=== PATIENT | female | born 1970 | race Caucasian/White ===

== ENCOUNTER 2017-06-10 00:07 | Observation (INO) | payer OTHER ==
[2017-06-10] VITALS (8 sets, daily range): BP systolic 102–137; BP diastolic 57–82; PULSE 77–81; RESP 16–20; TEMP 98–98.5; O2SAT 97–99
[~2017-06-10] VITALS: Ht 162.6 cm; Wt 95.0 kg
[~2017-06-10 00:07] MED LIST: CYCL-36 PO; NAPR40TA PO
[2017-06-10] MEDS ORDERED: MELO15TA20 PO (00:16)
[2017-06-10] MEDS ORDERED: SODIUM CHLORIDE 0.9% FLUSH 10 ML FLUSH IVF PRN (00:45)
[2017-06-10] MEDS ORDERED: NITROGLYCERIN 2% OINT 1 GM PACKET TOP ONE (00:45)
--- NOTE | 2017-06-10 00:46 | PD ---
HPI Chief Complaint: Chest Pain Time Seen by Provider: 00:35 Travel History International Travel<30 days: No Contact w/Intl Traveler<30days: No Traveled to known affect area: No History of Present Illness HPI The patient is of 46 year old female who presents to the [facility] emergency department with a history of chest pain that has been coming in going over the last 4 weeks. Tonight it was more severe and persistent. It was associated with nausea and dizziness. The pain as located on the left side of her chest and is a squeezing sensation. She recently had a physical with her PCP and had a chest xray pa and lateral that showed calcifications in the aorta for which she was referred to a Run Lead. She denies any other imaging being done at that time. She smokes 4-5 cigarettes per day. She has a history of gestational diabetes. She has had n/v x12 since the onset of the symptom. She has had diarrhea additionally that began 2-3 days ago. She has had yellow stools. The patient denies any history of fever, cough, congestion, neck pain, shortness of breath, urinary symptoms, or neurologic symptoms. Over the last week she has had some nasal congestion. [facility] Past Medical History Narrative Medical The patient's past medical history significant for gestational dm, lupus, arthritis. Arthritis: Yes Autoimmune Disease: Yes (LUPUS) Diabetes: Yes (GESTATIONAL DIABETES) Patient Takes Glucophage: No Diminished Hearing: No Immune Disorder: Yes (LUPUS ) Respiratory: Yes (hx pleurisy) Immunizations Current: Yes Tetanus Vaccination: Unknown Influenza Vaccination: No ?: Not Menopausal: No : 4 Para: 3 Miscarriage: 1 : 0 Tubal Ligation: Yes Past Surgical History Narrative Surgical The patient's past surgical history significant for bilateral tubal ligation. Gynecologic Surgery: Yes (TUBAL LIGATION ) Social History Alcohol Use: Yes (OCC) Tobacco Use: Yes (pack/week) Substance Use: Yes ([id number] x per week) Allergies-Medications (Allergen,Severity, Reaction): Coded Allergies: tramadol (Unverified Allergy, Severe, RASH,SOB, 06/10/17) Reported Meds & Prescriptions Reported Meds & Active Scripts Active Reported Meloxicam 15 Mg Tab 15 Mg PO DAILY Review of Systems Except as stated in HPI: all other systems reviewed are Neg General / Constitutional: No: Fever Eyes: No: Visual changes HENT: Positive: Congestion, No: Headaches, Rhinorrhea Cardiovascular: Positive: Chest Pain or Discomfort Respiratory: No: Shortness of Breath Gastrointestinal: Positive: Nausea, Vomiting, Diarrhea, No: Abdominal Pain Genitourinary: No: Dysuria Musculoskeletal: No: Pain Skin: No Rash Neurologic: No: Weakness Psychiatric: No: Depression Endocrine: No: Polydipsia Hematologic/Lymphatic: No: Easy Bruising Physical Exam Narrative General: The patient is a well-developed well-nourished female in no acute distress. Head and Neck exam: Head is normocephalic atraumatic. Eyes: EOMI, pupils are equal round and reactive to light. Nose: Midline septum with pink mucous membranes Mouth: Dentition unremarkable. Moist mucus membranes. Posterior oropharynx is not erythematous. No tonsillar hypertrophy. Uvula midline. Airway patent. Neck: No palpable lymphadenopathy. No nuchal rigidity. No thyromegaly. Cardiovascular: Regular rate and rhythm without murmurs, gallops, or rubs. Lungs: Clear to auscultation bilaterally. No wheezes, rhonchi, or rales. Abdomen: Soft, without tenderness to palpation in all 4 quadrants of the abdomen. No guarding, rebound, or rigidity. Normal bowel sounds are audible. No tenderness on palpation of McBurney's point. Negative Stacy sign. Extremities: No clubbing, cyanosis, or edema. 2+ pulses in all 4 extremities. No calf tenderness on palpation. Negative Homans sign. No palpable cords. Back: No spinous process tenderness to palpation. The patient is noted to have left- sided CVA tenderness on palpation. No right-sided CVA tenderness on palpation. Neurologic Exam: Grossly nonfocal. Skin Exam: No rash noted. Intact skin that is warm and dry. Data Data Last Documented VS Vital Signs Date Time Temp Pulse Resp B/P (MAP) Pulse Ox O2 Delivery O2 Flow Rate FiO2 06/10/17 03:02 80 16 125/70 (88) 99 Room Air 06/10/17 00:19 98.0 2.00 Orders Orders Electrocardiogram (06/10/17 00:36) B-Type Natriuretic Peptide (06/10/17 00:36) Ckmb (Isoenzyme) Profile (06/10/17 00:36) Complete Blood Count With Diff (06/10/17 00:36) Comprehensive Metabolic Panel (06/10/17 00:36) D-Dimer (06/10/17 00:36) Magnesium (Mg) (06/10/17 00:36) Prothrombin Time / Inr (Pt) (06/10/17 00:36) Act Partial Throm Time (Ptt) (06/10/17 00:36) Troponin I (06/10/17 00:36) Lipase (06/10/17 00:36) Chest, Single Ap (06/10/17 00:36) Ecg Monitoring (06/10/17 00:36) Bilateral Bp Monitoring (06/10/17 00:36) Iv Access Insert/Monitor (06/10/17 00:36) Oximetry (06/10/17 00:36) Oxygen Administration (06/10/17 00:36) Nitroglycerin 2% Oint (Nitroglycerin 2% (06/10/17 00:45) Sodium Chloride 0.9% Flush (Ns Flush) (06/10/17 00:45) Ed Urine Pregnancytest Poc (06/10/17 00:36) Ketorolac Inj (Toradol Inj) (06/10/17 01:30) Pyridostigmine Inj (Regonol Inj) (06/10/17 01:30) Sodium Chlorid 0.9% 500 Ml Inj (Ns 500 M (06/10/17 01:30) Potassium Chloride (Kcl) (06/10/17 01:45) Urinalysis - C+S If Indicated (06/10/17 01:36) Metoclopramide Inj (Reglan Inj) (06/10/17 01:45) Sodium Chlor 0.9% 1000 Ml Inj (Ns 1000 M (06/10/17 02:15) Admit Order (Ed Use Only) (06/10/17 03:13) Labs Laboratory Tests Test 06/10/17 00:40 06/10/17 02:20 White Blood Count 9.1 TH/MM3 Red Blood Count 4.00 MIL/MM3 Hemoglobin 12.7 GM/DL Hematocrit 37.6 % Mean Corpuscular Volume 94.0 FL Mean Corpuscular Hemoglobin 31.8 PG Mean Corpuscular Hemoglobin Concent 33.8 % Red Cell Distribution Width 13.1 % Platelet Count 220 TH/MM3 Mean Platelet Volume 8.7 FL Neutrophils (%) (Auto) 61.6 % Lymphocytes (%) (Auto) 30.4 % Monocytes (%) (Auto) 5.1 % Eosinophils (%) (Auto) 2.6 % Basophils (%) (Auto) 0.3 % Neutrophils # (Auto) 5.6 TH/MM3 Lymphocytes # (Auto) 2.8 TH/MM3 Monocytes # (Auto) 0.5 TH/MM3 Eosinophils # (Auto) 0.2 TH/MM3 Basophils # (Auto) 0.0 TH/MM3 CBC Comment DIFF FINAL Differential Comment Prothrombin Time 10.6 SEC Prothromb Time International Ratio 1.0 RATIO Activated Partial Thromboplast Time 26.1 SEC D-Dimer Quantitative (PE/DVT) 0.30 MG/L FEU Blood Urea Nitrogen 12 MG/DL Creatinine 0.61 MG/DL Random Glucose 84 MG/DL Total Protein 6.6 GM/DL Albumin 3.4 GM/DL Calcium Level 7.8 MG/DL Magnesium Level 1.8 MG/DL Alkaline Phosphatase 76 U/L Aspartate Amino Transf (AST/SGOT) 15 U/L Alanine Aminotransferase (ALT/SGPT) 31 U/L Total Bilirubin 0.4 MG/DL Sodium Level 141 MEQ/L Potassium Level 3.4 MEQ/L Chloride Level 109 MEQ/L Carbon Dioxide Level 26.1 MEQ/L Anion Gap 6 MEQ/L Estimat Glomerular Filtration Rate 107 ML/MIN Total Creatine Kinase 64 U/L Troponin I LESS THAN 0.02 NG/ML B-Type Natriuretic Peptide 35 PG/ML Lipase 107 U/L Urine Color YELLOW Urine Turbidity CLEAR Urine pH 6.0 Urine Specific S [place] 1.033 Urine Protein TRACE mg/dL Urine Glucose (UA) NEG mg/dL Urine Ketones TRACE mg/dL Urine Occult Blood NEG Urine Nitrite NEG Urine Bilirubin NEG Urine Urobilinogen LESS THAN 2.0 MG/DL Urine Leukocyte Esterase NEG Urine RBC 2 /hpf Urine WBC 1 /hpf Urine Squamous Epithelial Cells 1 /hpf Urine Mucus MANY /lpf Microscopic Urinalysis Comment CULT NOT INDICATED MDM Medical Decision Making Medical Screen Exam Complete: Yes Emergency Medical Condition: Yes Medical Record Reviewed: Yes Differential Diagnosis Acute coronary syndrome, versus gastritis, versus pancreatitis, versus acid reflux, versus pulmonary embolus Narrative Course During the course of the patients emergency department visit, the patients history, examination, and differential diagnosis were reviewed with the patient. The patient was placed on a private wealth advisor with oximetry and frequent blood pressure monitoring. The patient had IV access obtained and blood work sent for analysis. The patient had an ECG done on arrival. The patient's ECG reveals a sinus rhythm with a sinus arrhythmia, heart rate of 78, QRS duration is 90 ms, QTC 415 ms, no acute ST segment elevation or depression, T waves are inverted in V1. The patient was initially provided nitroglycerin 1 inch of paste to the chest wall, normal saline at 500 mL bolus 1, Toradol 15 mg IV. The patient continued to have nausea with given Reglan 5 mg IV. The patient has treated for mild hypokalemia with p.o. potassium. The patient has given an additional normal saline 1 L IV fluid bolus. The patients laboratory studies were reviewed and remarkable for A CBC that it is within normal limit, CMP as remarkable for potassium of 3.4, chloride 109, calcium 7.8, cardiac enzymes within normal limits, BNP 35, lipase 107, PT PTT within normal limits, d-dimer less than 0.5 decreasing likelihood of pulmonary embolism in this patient with no other significant risk factors. Urinalysis as unremarkable except for trace ketones. Radiology studies were reviewed and remarkable for a chest x-ray that shows no evidence of acute cardiopulmonary disease The patient will be admitted to the chest pain center for rule out serial cardiac enzyme protocol, followed by consideration of stress testing. Diagnosis Primary Impression: Chest pain, rule out acute myocardial infarction Admitting Information Admitting Physician Requests: Saray Antonio MD Jun 10, 2017 00:46
--- NOTE | 2017-06-10 00:57 | RADRPT ---
EXAM DATE/TIME: 06/10/2017 00:40 [facility] COMPARISON: CHEST SINGLE AP, August 17, 2015, 11:38. INDICATIONS : Chest pain. MEDICAL HISTORY : None. SURGICAL HISTORY : None. ENCOUNTER: Initial ACUITY: 1 day PAIN SCORE: 4/10 LOCATION: Left chest FINDINGS: A single view of the chest demonstrates the lungs to be symmetrically aerated without evidence of mas s, infiltrate or effusion. The cardiomediastinal contours are unremarkable. Osseous structures are intact. CONCLUSION: No acute disease. Elier Carpenter MD on June 10, 2017 at 0:54 Board Certified Radiologist. This report was verified electronically.
[2017-06-10 01:08] LABS: AUTOMATED NEUTROPHIL # 5.6 TH/MM3 (1.8-7.7); BASOPHIL % 0.3 % (0.0-2.0); EOSINOPHIL # 0.2 TH/MM3 (0-0.4); EOSINOPHIL % 2.6 % (0.0-4.0); HEMATOCRIT 37.6 % (35.0-46.0); HEMOGLOBIN 12.7 GM/DL (11.6-15.3); LYMPH % 30.4 % (9.0-44.0); LYMPHOCYTE # 2.8 TH/MM3 (1.0-4.8); MEAN CORPUSCULAR HEMOGLOBIN 31.8 PG (27.0-34.0); MEAN CORPUSCULAR HGB CONC 33.8 % (32.0-36.0); MEAN PLATELET VOLUME 8.7 FL (7.0-11.0); MONO % 5.1 % (0.0-8.0); MONOCYTE # 0.5 TH/MM3 (0-0.9); NEUT % 61.6 % (16.0-70.0); PLATELET COUNT 220 TH/MM3 (150-450); RED CELL DISTRIBUTION WIDTH 13.1 % (11.6-17.2); WHITE BLOOD COUNT 9.1 TH/MM3 (4.0-11.0)
[2017-06-10 01:16] LABS: D-DIMER 0.3 MG/L FEU (0.00-0.50); PROTHROMBIN TIME - PATIENT 10.6 SEC (9.8-11.6)
[2017-06-10 01:22] LABS: ALBUMIN 3.4 GM/DL (3.4-5.0); AST (GOT) 15 U/L (15-37); BICARBONATE 26.1 MEQ/L (21.0-32.0); BLOOD UREA NITROGEN 12 MG/DL (7-18); CALCIUM 7.8 MG/DL (8.5-10.1); CHLORIDE 109 MEQ/L (98-107); CREATININE 0.61 MG/DL (0.50-1.00); GLOMERULAR FILTRATION RATE 107 ML/MIN (>89); GLUCOSE,RANDOM 84 MG/DL (74-106); LIPASE 107 U/L (73-393); MAGNESIUM 1.8 MG/DL (1.5-2.5); SODIUM (NA) 141 MEQ/L (136-145)
[2017-06-10 01:27] LABS: ALKALINE PHOSPHATASE 76 U/L (45-117); ALT (GPT) 31 U/L (10-53); TOTAL BILIRUBIN ADULT 0.4 MG/DL (0.2-1.0); TOTAL PROTEIN 6.6 GM/DL (6.4-8.2); TROPONIN I LESS THAN 0.02 NG/ML (0.02-0.05)
[2017-06-10] MEDS ORDERED: PYRIDOSTIGMINE INJ 10 MG/2 ML AMP IM ONE (01:30)
[2017-06-10] MEDS ORDERED: SODIUM CHLORID 0.9% 500 ML INJ 500 ML IV ONE (01:30)
[2017-06-10] MEDS ORDERED: KETOROLAC TROMETHAMINE 30 MG/ML (IVP) VIAL IV PUSH ONE (01:30)
[2017-06-10] MEDS ORDERED: POTASSIUM CHLORIDE 20 MEQ CONTROLLED RELEASE TAB PO ONE (01:45)
[2017-06-10] MEDS ORDERED: METOCLOPRAMIDE HCL 10 MG/2 ML VIAL IV PUSH ONE (01:45)
[2017-06-10] MEDS ORDERED: SODIUM CHLOR 0.9% 1000 ML INJ 1,000 ML IV ONE (02:15)
[2017-06-10 02:47] LABS: BILIRUBIN, URINE NEG (NEG); BLOOD, URINE NEG (NEG); GLUCOSE,URINE NEG (NEG); KETONE, URINE TRACE mg/dL (NEG); MUCUS URINE MANY /lpf (OCC); NITRITE,URINE NEG (NEG); SQUAMOUS EPITHELIAL CELL URINE 1 /hpf (0-5); URINE COLOR YELLOW (YELLW/STRAW); URINE LEUKOCYTE ESTERASE NEG (NEG)
[2017-06-10] MEDS ORDERED: SODIUM CHLOR 0.9% 1000 ML INJ 1,000 ML IV SCH (03:49)
[2017-06-10] MEDS ORDERED: ONDANSETRON HCL 4 MG/2 ML VIAL IV PUSH PRN (04:00)
[2017-06-10] MEDS ORDERED: SODIUM CHLORIDE 0.9% FLUSH 10 ML FLUSH IV FLUSH PRN (04:00)
[2017-06-10] MEDS ORDERED: ACETAMINOPHEN 500 MG CPLT PO PRN (04:00)
[2017-06-10 04:26] LABS: TROPONIN I 0.02 NG/ML (0.02-0.05)
[2017-06-10 07:26] LABS: TROPONIN I LESS THAN 0.02 NG/ML (0.02-0.05)
[2017-06-10] MEDS ORDERED: ACETAMINOPHEN 325 MG TAB PO ONE (07:45)
[2017-06-10] MEDS ORDERED: FAMOTIDINE 20 MG TAB PO SCH (09:00)
[2017-06-10] MEDS ORDERED: SODIUM CHLORIDE 0.9% FLUSH 10 ML FLUSH IV FLUSH SCH (09:00)
--- NOTE | 2017-06-10 09:07 | HHI.HP ---
[facility] Primary Care Physician Seamus Gerber DO Chief Complaint Chest pain History of Present Illness This is a 46-year-old female that presents to ED to be evaluated for chest discomfort. Patient states that she has had a constant discomfort for one month that began as a pressure in left lower chest and radiates upwards and turned into a squeezing sensation. This continues to cycle constantly for the past month. She is found nothing to worsen or improve it. She's had no shortness of breath with it. No diaphoresis. Was not feeling nauseous with it however she states over the last 2 days she has had nausea with a couple episodes of emesis which was nonbloody. She is also had multiple bouts of watery bowel movements. States she's had diarrhea for 2 days. She states she' s. To watery bowel movements since being in the ED. Denies fevers. Denies any known sick contacts. Denies recent travel. Denies history of CAD. She had a stress test at this facility July 2015 at which time she had a nonischemic worse protocol ETT. Her primary care physician is Dr. Rosales. She states she saw him for this discomfort and states she was referred to a housekeeping lead that she has an appointment for next week. Review of Systems General: Patient denies fevers, chills recent, and recent travel HEENT: Patient denies headache, sore throat, difficulty swallowing. Cardiovascular: Has the chest discomfort as mentioned above. Denies sensation of heart beating rapidly or irregularly. No syncope. Denies diaphoresis. Respiratory: Denies shortness of breath or inspirational chest discomfort. Denies coughing wheezing or hemoptysis. GI: Patient began feeling nauseous with a couple episodes of nonbloody emesis as well as diarrhea, this began 2 days ago. Denies abdominal pain. Patient denies bloody stools. Musculoskeletal: Chronic arthralgias, stating she has lupus. Patient denies joint edema. Denies calf pain or edema. Neurovascular: Patient denies numbness, tingling, weakness in extremities. Denies headache. Endocrine: Denies polyuria and polydipsia. Hematologic: Denies easy bruising. Skin: Denies rash or itching. Past Family Social History Allergies: Coded Allergies: tramadol (Unverified Allergy, Severe, RASH,SOB, 06/10/17) Past Medical History This and tobacco abuse. Denies known CAD, hypertension, hyperlipidemia, or diabetes. Past Surgical History Tubal ligation. Reported Medications Reported Meds & Active Scripts Active Reported Meloxicam 15 Mg Tab 15 Mg PO DAILY Active Ordered Medications Current Medications Medications (Trade) Dose Ordered Sig/Charline Route Start Time Stop Time Status Last Admin (NS Flush) 2 ml UNSCH PRN IVF 06/10/17 00:45 Sodium Chloride 1,000 ml @ 100 mls/hr Q10H IV 06/10/17 03:49 06/10/17 04:04 (NS Flush) 2 ml UNSCH PRN IV FLUSH 06/10/17 04:00 (NS Flush) 2 ml BID IV FLUSH 06/10/17 09:00 (Tylenol) 500 mg Q4H PRN PO 06/10/17 04:00 06/10/17 05:34 (Zofran Inj) 4 mg Q6H PRN IV PUSH 06/10/17 04:00 06/10/17 05:34 (Pepcid) 20 mg BID PO 06/10/17 09:00 Family History States her father had a CABG at age 55. Social History Smokes on average one half pack of cigarettes per week and has done so for 8 years. She smokes marijuana at least 4 times a week. Has occasional alcohol. Physical Exam Vital Signs Vital Signs Date Time Temp Pulse Resp B/P (MAP) Pulse Ox O2 Delivery O2 Flow Rate FiO2 06/10/17 07:32 97 21 06/10/17 07:24 98.5 80 18 102/57 (72) 98 Room Air 06/10/17 03:02 80 16 125/70 (88) 99 Room Air 06/10/17 00:55 132/70 (90) 118/70 (86) 06/10/17 00:49 98 Room Air 06/10/17 00:49 98 Room Air 06/10/17 00:19 98.0 77 20 132/80 (97) 98 Nasal Cannula 2.00 06/10/17 00:16 98.0 81 20 137/82 (100) 98 Physical Exam GENERAL: This is a well-nourished, well-developed patient, in no apparent distress. Patient speaks in clear complete sentences. Patient is pleasant. HEENT: Head is atraumatic and normocephalic. Neck is supple without lymphadenopathy and trachea is midline. No JVD or carotid bruits. CARDIOVASCULAR: Regular rate and rhythm without murmurs, gallops, or rubs. RESPIRATORY: Clear to auscultation. Breath sounds equal bilaterally. No wheezes , rales, or rhonchi. Chest wall is nontender. No use of accessory muscles. GASTROINTESTINAL: Abdomen is nontender, nondistended. Abdomen soft. No obvious pulsatile mass or bruit. No CVA tenderness. Strong femoral pulses bilaterally. Normal bowel sounds in all quadrants. MUSCULOSKELETAL: Patient is moving upper and lower extremities freely. No calf tenderness or edema, no Homans sign. Strong pulses in upper and lower extremities. NEUROLOGICAL: Patient is alert and oriented. Cranial nerves 2-12 are grossly intact. No focal deficits and speech is clear. SKIN: No rash and turgor is normal. Laboratory Laboratory Tests Test 06/10/17 00:40 06/10/17 02:20 06/10/17 04:00 06/10/17 06:45 White Blood Count 9.1 Red Blood Count 4.00 Hemoglobin 12.7 Hematocrit 37.6 Mean Corpuscular Volume 94.0 Mean Corpuscular Hemoglobin 31.8 Mean Corpuscular Hemoglobin Concent 33.8 Red Cell Distribution Width 13.1 Platelet Count 220 Mean Platelet Volume 8.7 Neutrophils (%) (Auto) 61.6 Lymphocytes (%) (Auto) 30.4 Monocytes (%) (Auto) 5.1 Eosinophils (%) (Auto) 2.6 Basophils (%) (Auto) 0.3 Neutrophils # (Auto) 5.6 Lymphocytes # (Auto) 2.8 Monocytes # (Auto) 0.5 Eosinophils # (Auto) 0.2 Basophils # (Auto) 0.0 CBC Comment DIFF FINAL Differential Comment Prothrombin Time 10.6 Prothromb Time International Ratio 1.0 Activated Partial Thromboplast Time 26.1 D-Dimer Quantitative (PE/DVT) 0.30 Blood Urea Nitrogen 12 Creatinine 0.61 Random Glucose 84 Total Protein 6.6 Albumin 3.4 Calcium Level 7.8 Magnesium Level 1.8 Alkaline Phosphatase 76 Aspartate Amino Transf (AST/SGOT) 15 Alanine Aminotransferase (ALT/SGPT) 31 Total Bilirubin 0.4 Sodium Level 141 Potassium Level 3.4 Chloride Level 109 Carbon Dioxide Level 26.1 Anion Gap 6 Estimat Glomerular Filtration Rate 107 Total Creatine Kinase 64 46 50 Troponin I LESS THAN 0.02 0.02 LESS THAN 0.02 B-Type Natriuretic Peptide 35 Lipase 107 Urine Color YELLOW Urine Turbidity CLEAR Urine pH 6.0 Urine Specific [place] 1.033 Urine Protein TRACE Urine Glucose (UA) NEG Urine Ketones TRACE Urine Occult Blood NEG Urine Nitrite NEG Urine Bilirubin NEG Urine Urobilinogen LESS THAN 2.0 Urine Leukocyte Esterase NEG Urine RBC 2 Urine WBC 1 Urine Squamous Epithelial Cells 1 Urine Mucus MANY Microscopic Urinalysis Comment CULT NOT INDICATED Result Diagram: 06/10/170 06/10/17 0040 Imaging Last 48 hours Impressions Chest X-Ray 06/10/17 0036 Signed Impressions: Service Date/Time: Saturday, June 10, 2017 00:40 - CONCLUSION: No acute disease. Elier Carpenter MD Course EKGs are sinus rhythm without significant ST segment depressions or elevations. Caprini VTE Risk Assessment Caprini VTE Risk Assessment: No/Low Risk (score <= 1) Caprini Risk Assessment Model Point Value = 1 Point Value = 2 Point Value = 3 Point Value = 5 Age 41-60 Minor surgery BMI > 25 kg/m2 Swollen legs Varicose veins or History of unexplained or recurrent spontaneous Oral contraceptives or hormone replacement Sepsis (< 1 month) Serious lung disease, including pneumonia (< 1 month) Abnormal pulmonary function Acute myocardial infarction Congestive heart failure (< 1 month) History of inflammatory bowel disease Medical patient at bed rest Age 61-74 Arthroscopic surgery Major open surgery (> 45 min) Laparoscopic surgery (> 45 min) Malignancy Confined to bed (> 72 hours) Immobilizing plaster cast Central venous access Age >= 75 History of VTE Family history of VTE Factor V Leiden Prothrombin [id number] Lupus anticoagulant Anticardiolipin antibodies Elevated serum homocysteine Heparin-induced thrombocytopenia Other congenital or acquired thrombophilia Stroke (< 1 month) Elective arthroplasty Hip, pelvis, or leg fracture Acute spinal cord injury (< 1 month) Prophylaxis Regimen Total Risk Factor Score Risk Level Prophylaxis Regimen 0-1 Low Early ambulation 2 Moderate Order ONE of the following: *Sequential Compression Device (SCD) *Heparin 5000 units SQ BID 3-4 Higher Order ONE of the following medications: *Heparin 5000 units SQ TID *Enoxaparin/Lovenox 40 mg SQ daily (WT < 150 kg, CrCl > 30 mL/min) *Enoxaparin/Lovenox 30 mg SQ daily (WT < 150 kg, CrCl > 10-29 mL/min) *Enoxaparin/Lovenox 30 mg SQ BID (WT < 150 kg, CrCl > 30 mL/min) AND/OR *Sequential Compression Device (SCD) 5 or more Highest Order ONE of the following medications: *Heparin 5000 units SQ TID (Preferred with Epidurals) *Enoxaparin/Lovenox 40 mg SQ daily (WT < 150 kg, CrCl > 30 mL/min) *Enoxaparin/Lovenox 30 mg SQ daily (WT < 150 kg, CrCl > 10-29 mL/min) *Enoxaparin/Lovenox 30 mg SQ BID (WT < 150 kg, CrCl > 30 mL/min) AND *Sequential Compression Device (SCD) Assessment and Plan Assessment and Plan * Chest pain: Her symptoms are atypical. The been present for month constantly. Normal troponins. Patient will be seen by Dr. Angel Cohen of cardiology in the chest and center and will likely have a Gerber protocol ETT. She will be discharged home if her stress test is nonischemic. Patient should then follow back with her PCP, return to ED for interval issues. * Tobacco abuse: Patient has been counseled on importance of smoking cessation. A she is stable at this time. She is agreeable to this plan. Yinka Ashton Jun 10, 2017 09:07
--- NOTE | 2017-06-10 10:45 | HHI.DCPOC ---
Discharge Care Plan Diagnosis: (1) Chest pain, atypical (2) Tobacco abuse Goals to Promote Your Health * To prevent worsening of your condition and complications * To maintain your health at the optimal level Directions to Meet Your Goals Take your medications as prescribed Follow your dietary instruction Follow activity as directed Keep your appointments as scheduled Take your immunizations and boosters as scheduled If your symptoms worsen call your PCP, if no PCP go to Urgent Care Center or Emergency Room Smoking is Dangerous to Your Health. Avoid second hand smoke Call the 24-hour hour crisis hotline for domestic abuse at Yinka Ashton Jun 10, 2017 10:45
--- NOTE | 2017-06-10 13:03 | EKG ---
Date Performed: 06/10/2017 Time Performed: 04:09:32 PTAGE: 46 years EKG: Sinus rhythm NORMAL ECG NO PREVIOUS TRACING DOCTOR: Angel Cohen Interpretating Date/Time 06/10/2017 13:01:46
--- NOTE | 2017-06-10 13:04 | EKG ---
Date Performed: 06/10/2017 Time Performed: 00:15:28 PTAGE: 46 years EKG: Sinus rhythm WITH SINUS ARRHYTHMIA NORMAL ECG NO PREVIOUS TRACING DOCTOR: Angel Cohen Interpretating Date/Time 06/10/2017 13:02:30
--- NOTE | 2017-06-10 13:09 | EKG ---
Date Performed: 06/10/2017 Time Performed: 06:38:17 PTAGE: 46 years EKG: Sinus rhythm ABNORMAL ECG PREVIOUS TRACING : 08/17/2015 14.35 Since previous tracing, no significant change noted DOCTOR: Angel Cohen Interpretating Date/Time 06/10/2017 13:07:35
--- NOTE | 2017-06-10 13:09 | TR ---
Date Performed: 06/10/2017 Time Performed: 09:32:15 DOCTOR: Angel Cohen DRUG LIST: CLINICAL HISTORY: CHEST PAIN R/O ACS REASON FOR TEST: REASON FOR ENDING: OBSERVATION: CONCLUSION: EUGENIA PROTOCOL. HER CONSTANT CP DID NOT CHANGE. TEST STOPPED AFTER EXCEEDING GOAL HR SECONDARY TO SOB AND LEG FATIGUE.Maximum MR=548 % Max HR Achieved=86.0% Resting SF=935/60 Total Exer cise Time=7:21 COMMENTS: Patient exercised using the Eugenia protocol. No electrocardiographic changes were seen to suggest ischemia. Hemodynamic response to exercise was normal. No significant arrhythmia was prese nt.
== END 2017-06-10 11:05 | disposition home or self-care (01) ==
LOC: NEPE 00:07 → NEDA 03:15
PROVIDERS: ADMIT Internal Medicine Interventional Cardiology; ATTEND Internal Medicine Interventional Cardiology
DX: R07.89 Other chest pain (principal); E87.6 Hypokalemia; F17.210 Nicotine dependence, cigarettes, uncomplicated; F12.90 Cannabis use, unspecified, uncomplicated; Z86.32 Personal history of gestational diabetes
CPT/HCPCS: 71045; 80053; 81001; 82550; 83690; 83735; 83880; 84484; 84703; 85025; 85379; 85610; 85730; 93005; 93017; 96361; 96374; 96375; 99285; G0378; J1885; J2405; J2765; J7030; J7040